=== PATIENT | male | born 1955 | race Caucasian/White ===

== ENCOUNTER 2020-12-24 01:30 | Emergency (ER) | payer MEDICARE, BC ==
[~2020-12-24] VITALS: Ht 175.3 cm; Wt 81.6 kg
--- NOTE | 2020-12-24 01:42 | NUR ---
PT AAOX4 BIBRA 38 FROM HOME C/O ANXIOUS S/P "VITAMIN PILL GOT STUCK IN MY THROAT, MY BLOOD PRESSURE KEEPS GOING UP" PT PLACED IN BED 3 ON MOLDING [employer] AND PULSE OX.
--- NOTE | 2020-12-24 01:46 | NUR ---
LINE ESTABLISHED RAC 18G, BLOOD WORK COLLECTED, SENT TO LAB.
[2020-12-24] MEDS ORDERED: ASPIRIN 81 MG TAB.CHEW PO ONE (02:00)
[2020-12-24] MEDS ORDERED: NITROGLYCERIN PACKET 1 GM PACKET TD ONE (02:00)
[2020-12-24] MEDS ORDERED: LORAZEPAM 1 MG TABLET PO ONE (02:00)
[2020-12-24] MEDS ORDERED: NITROGLYCERIN PACKET 1 GM PACKET ONE (02:09)
[2020-12-24] MEDS ORDERED: ASPIRIN 81 MG TAB.CHEW ONE (02:09)
[2020-12-24] MEDS ORDERED: LORAZEPAM 1 MG TABLET ONE (02:09)
[2020-12-24 02:12] LABS: BASOPHILS # (AUTO) 0.1 /CMM (0.0-0.2); BASOPHILS % (AUTO) 0.7 % (0.0-2.0); EOSINOPHILS % (AUTO) 2.6 % (0.0-6.0); HEMATOCRIT 39 % (39-51); HEMOGLOBIN 13.3 g/dL (13.5-17.5); LYMPHOCYTES # (AUTO) 1.8 /CMM (0.8-4.8); LYMPHOCYTES % (AUTO) 16.1 % (20.0-44.0); MEAN CORPUSCULAR HGB CONC 34 g/dl (31.0-36.0); MEAN CORPUSCULAR VOLUME 88 fL (80-96); MONOCYTES # (AUTO) 0.9 /CMM (0.1-1.30); MONOCYTES % (AUTO) 7.7 % (2.0-12.0); NEUTROPHILS # (AUTO) 8.4 /CMM (1.8-8.9); NEUTROPHILS % (AUTO) 72.9 % (43.0-81.0); PLATELET COUNT (AUTO) 211 /CMM (150-450); RED BLOOD CELL COUNT(AUTO) 4.48 MIL/uL (4.5-6.0); WHITE BLOOD COUNT (AUTO) 11.5 K/uL (4.3-11.0)
[2020-12-24 02:47] LABS: CALCIUM, SERUM 9.6 mg/dL (8.5-10.1); CARBON DIOXIDE 24 mmol/L (21-32); CHLORIDE 104 mmol/L (98-107); CREATININE 0.9 mg/dL (0.6-1.3); GLUCOSE 113 mg/dL (74-106); SODIUM SERUM 137 mmol/L (136-145); UREA NITROGEN, BLOOD 20 mg/dL (7-18)
[2020-12-24 03:00] LABS: ALANINE AMINOTRANSFERASE 65 U/L (12-78); ALBUMIN 3.7 g/dL (3.4-5.0); ALKALINE PHOSPHATASE 59 U/L (46-116); ASPARTATE AMINOTRANSFERASE 65 U/L (15-37); B-TYPE NATRIURETIC PEPTIDE 74 PG/ML (0-125); BILIRUBIN,DIRECT 0.2 mg/dL (0.0-0.2); BILIRUBIN,TOTAL 0.7 mg/dL (0.2-1.0); TOTAL PROTEIN, SERUM 7.2 g/dL (6.4-8.2)
[2020-12-24] MEDS ORDERED: ALPR0.5T PO (06:18)
--- NOTE | 2020-12-24 06:30 | NUR ---
IV removed. Catheter intact and site benign. Pressure and 4x4 applied to site. No bleeding noted.
[2020-12-24 07:05] VITALS: BP 128/76
--- NOTE | 2020-12-24 07:05 | NUR ---
Patient discharged to home in stable condition. Written and verbal after care instructions given. Patient verbalizes understanding of instruction.
== END 2020-12-24 07:06 | disposition home or self-care (01) ==
LOC: ER 01:30
DX: R07.89 Other chest pain (principal); I10 Essential (primary) hypertension; F41.9 Anxiety disorder, unspecified; E78.00 Pure hypercholesterolemia, unspecified
CPT/HCPCS: 36415; 71045-TC; 80048-TC; 80076-TC; 83880; 84484-TC; 85025-TC